=== PATIENT | male | born 1990 | race Caucasian/White ===

== ENCOUNTER 2019-03-24 17:24 | Emergency (ER) | payer SELFPAY ==
[2019-03-24 17:50] VITALS: BP 133/83; PULSE 110; TEMP 102.7; BMI 26.6
[2019-03-24] MEDS ORDERED: IBUPROFEN 600 MG TABLET (FP) PO ONE ×2 (18:01→18:05)
--- NOTE | 2019-03-24 18:06 | PDOC ---
History of Present Illness - General Chief Complaint: Cold Symptoms Stated Complaint: FEVER/COLD SYMPTOMS/PAIN Time Seen by Provider: 03/24/19 17:57 History Source: Patient Exam Limitations: No Limitations - History of Present Illness Initial Comments: 03/24/19 18:03 Patient is a 28-year-old male who presents to the ED with complaint of fever and body aches for the last 2 days. He states his symptoms started yesterday. He has been taking "fever service inspector" every 4 hours and he last took it at about 2 PM. He is unsure if this is ibuprofen or acetaminophen. He denies any cough or sore throat. He has had loss of appetite. He denies any past medical history or allergies to medications. Past History - Past Medical History Allergies/Adverse Reactions: Allergies Allergy/AdvReac Type Severity Reaction Status Date / Time No Known Allergies Allergy Verified 03/24/19 17:46 Home Medications: Ambulatory Orders Oseltamivir Phosphate [Tamiflu] 75 mg PO BID #10 capsule 03/24/19 - Psycho Social/Smoking Cessation Hx Smoking History: Current every day smoker Number of Cigarettes Smoked Daily: 20 Information on smoking cessation initiated: No Hx Alcohol Use: No Drug/Substance Use Hx: No Review of Systems - Review of Systems Comments:: 03/24/19 18:04 - Review of Systems Able to Perform ROS?: Yes Constitutional: No: Night Sweats, Weakness; positive: fever, Chills, Loss of Appetite HEENTM: No: Eye Pain, Vision changes, Ear Pain, Throat Pain, Throat Swelling, Mouth Pain, Difficulty Swallowing Respiratory: No: Cough, Shortness of Breath, Wheezing, Sputum Production Cardiac (ROS): No: Chest Pain, Chest Tightness, Palpitations, Irregular Heart Beat, Edema ABD/GI: No: Nausea, Vomiting, Abdominal Pain, Diarrhea : No Dysuria, No Hematuria, No Frequency, No Urgency Musculoskeletal: No: Muscle Pain, Back Pain, Joint Pain, Muscle Weakness, Neck Pain; positive: Body aches Integumentary: No: Lesions, Rash Neurological: No: Headache, Numbness, Tingling, Weakness, Speech Difficulties *Physical Exam - Vital Signs Last Vital Signs Temp Pulse Resp BP Pulse Ox 102.7 F H 110 H 18 133/83 98 03/24/19 17:46 03/24/19 17:46 03/24/19 17:46 03/24/19 17:46 03/24/19 17:46 - Physical Exam 03/24/19 18:04 - Physical Exam General Appearance: Nourished, Appropriately Dressed, No Distress; Pt general unwell appearing, non-toxic HEENT: EOMI, Normal Voice, No Pharyngeal Erythema, No Muffled/Hoarse voice, No Tonsillar Exudate, No Tonsillar Erythema, No Nasal Congestion, No Rhinorrhea, Hearing Grossly Normal, TMs Normal, No TM Bulging, No TM Dullness, No TM Erythema Neck: Supple, No Lymphadenopathy (R), No Lymphadenopathy (L), No Rigidity, No Decreased range of motion Respiratory/Chest: Lungs Clear, Normal Breath Sounds. No Respiratory Distress, No Accessory Muscle Use Cardiovascular: Regular Rhythm, Regular Rate, S1, S2 Gastrointestinal/Abdominal: Normal Bowel Sounds, Soft. Non-tender, No Guarding , No Rebound, No Rigidity Musculoskeletal: Normal Inspection. No Decreased Range of Motion Extremity: Normal Capillary Refill, Normal Inspection Integumentary: Normal Color, Dry. No Rash Neurologic: inspector mechanical II-XII NML intact, Fully Oriented, Alert, Normal Mood/Affect, Normal Response Medical Decision Making - Medical Decision Making 03/24/19 18:05 Assessment: Patient is a 28-year-old male with flulike illness. Plan: -He has been made aware that we will prescribe him Tamiflu since he is within the window of treatment. -He should follow-up with a primary doctor within 1 to 2 days for repeat evaluation. -He should get plenty of rest and drink plenty of fluids. -He can alternate Tylenol and ibuprofen for his fevers. Discharge - Discharge Information Problems reviewed: Yes Clinical Impression/Diagnosis: Flu-like symptoms Condition: Stable Disposition: HOME - Additional Discharge Information Prescriptions: Oseltamivir Phosphate [Tamiflu] 75 mg PO BID #10 capsule - Follow up/Referral - Patient Discharge Instructions Patient Printed Discharge Instructions: DI for Influenza -- Adult Additional Instructions: Get plenty of rest and drink plenty of fluids. Take Tylenol or ibuprofen for fevers. Take the Tamiflu as prescribed. If the Tamiflu gives you vomiting or diarrhea you can stop it at any time. Follow-up with your primary doctor within 1 to 2 days for repeat evaluation. - Post Discharge Activity Work/Back to School Note: Back to Work
== END 2019-03-24 18:51 | disposition home or self-care (01) ==
LOC: JERFT 17:24
DX: J11.1 Influenza due to unidentified influenza virus with other respiratory manifestations (principal); F17.210 Nicotine dependence, cigarettes, uncomplicated
CPT/HCPCS: 99283-25